=== PATIENT | female | born 1955 | race African-American/Black ===

== ENCOUNTER 2018-06-02 20:42 | Emergency (ER) | payer MEDICAID ==
[~2018-06-02] VITALS: Ht 165.1 cm; Wt 63.6 kg
[~2018-06-02 20:42] MED LIST: ACC40 PO; ALBUTEROL; AMLODIPINE; ASPIRIN; CHLO4TAB PO; CLON0.2T PO; GLIP5TAB12 PO; HYDR-2510 PO; METF-414 PO; OMEP20CA10 PO; QVAR; SERT100T PO; TRAM50TA3 PO
[2018-06-02 20:45] VITALS: BP 142/89
== END 2018-06-02 22:53 | disposition left against medical advice (07) ==
LOC: ER 20:42
DX: R10.9 Unspecified abdominal pain (principal); Z53.21 Procedure and treatment not carried out due to patient leaving prior to being seen by health care provider

== ENCOUNTER 2020-09-13 20:02 | Emergency (ER) | payer MEDICAID, OTHER ==
[~2020-09-13] VITALS: Ht 170.2 cm; Wt 79.5 kg
[~2020-09-13 20:02] MED LIST changes: -HYDR-2510 PO; +HYDR50TA PO; -OMEP20CA10 PO; +OMEP20CA14 PO
[2020-09-13] MEDS ORDERED: LORAZEPAM 2MG/ML CPJ IV STA (20:35)
[2020-09-13] MEDS ORDERED: SODIUM CHLORIDE 0.9% 1,000 ML IV ONE (20:45)
[2020-09-13 21:27] LABS: BASOPHILS % 0.5 % (0.0-2.0); EOSINOPHILS % 0.3 % (0.0-5.0); HEMATOCRIT. 40.3 % (36.0-48.0); HEMOGLOBIN. 13.3 g/dL (12.0-16.0); LYMPHOCYTES % 20.9 % (20.0-50.0); MEAN CORPUSCULAR HEMOGLOBIN 29.6 pg (28.0-32.0); MEAN CORPUSCULAR VOLUME 89.4 fL (81.0-99.0); MEAN PLATELET VOLUME 10.3 fl (7.4-10.4); MONOCYTES % 8.8 % (2.0-8.0); NEUTROPHILS % 69.5 % (40.0-76.0); PLATELET 248 x1000/uL (130-400); RED CELL DISTRIBUTION WIDTH 15.6 % (11.6-14.6)
[2020-09-13 21:28] LABS: CHLORIDE 103 mEq/L (98-107)
[2020-09-13 21:32] LABS: ETHANOL BLOOD < 10 mg/dL
[2020-09-13 23:00] VITALS: BP 190/96
[2020-09-13] MEDS ORDERED: CLONIDINE 0.2MG TABLET PO ONE (23:00)
== END 2020-09-13 23:30 | disposition home or self-care (01) ==
LOC: ER 20:02
DX: F14.129 Cocaine abuse with intoxication, unspecified (principal); I10 Essential (primary) hypertension; Z79.899 Other long term (current) drug therapy; Z88.6 Allergy status to analgesic agent; Z88.8 Allergy status to other drugs, medicaments and biological substances
CPT/HCPCS: 36415; 80053; 80307; 80320; 80329; 85025; 93005; 96361; 96374; 99284; J2060; J7030; G0480